=== PATIENT | female | born 1930 | race Two or more races ===

== ENCOUNTER 2016-03-06 23:49 | Inpatient (IN) | payer MEDICARE, MEDICAID ==
[~2016-03-06] VITALS: Ht 154.9 cm; Wt 79.4 kg
[2016-03-06] MEDS ORDERED: IV NS 0.9% 1,000 ML ONE (23:50)
[2016-03-06] MEDS ORDERED: ONDANSETRON HCL/PF 4 MG/2 ML VIAL ONE (23:50)
[2016-03-06] MEDS ORDERED: IV SET PRIMARY 1 EA INFUS.SET MC ONE (23:50)
[2016-03-07] VITALS (7 sets, daily range): BP systolic 124–151; BP diastolic 66–90
[2016-03-07] MEDS ORDERED: IV NS 0.9% 1,000 ML BAG IV ONE
[2016-03-07] MEDS ORDERED: ONDANSETRON HCL/PF 4 MG/2 ML VIAL IVP ONE
[2016-03-07 00:19] LABS: BASOPHILS % (AUTO) 0.5 % (0.0-2.0); DIFF TOTAL % 100 %; EOSINOPHILS # (AUTO) 0.3 /CMM (0.0-0.7); EOSINOPHILS % (AUTO) 3.8 % (0.0-6.0); HEMATOCRIT 31 % (33-45); LYMPHOCYTES # (AUTO) 2.2 /CMM (0.8-4.8); LYMPHOCYTES % (AUTO) 26.5 % (20.0-44.0); MEAN CORPUSCULAR HEMOGLOBIN 26 PG (26.0-33.0); MEAN CORPUSCULAR HGB CONC 32 g/dl (31.0-36.0); MEAN CORPUSCULAR VOLUME 81 fL (82-100); MONOCYTES # (AUTO) 0.5 /CMM (0.1-1.30); MONOCYTES % (AUTO) 5.4 % (2.0-12.0); NEUTROPHILS # (AUTO) 5.4 /CMM (1.8-8.9); NEUTROPHILS % (AUTO) 63.8 % (43.0-81.0); PLATELET COUNT (AUTO) 267 /CMM (150-450); RED BLOOD CELL COUNT(AUTO) 3.84 MIL/uL (4.0-5.2); WHITE BLOOD COUNT (AUTO) 8.5 K/uL (4.3-11.0)
[2016-03-07 00:31] LABS: ANION GAP 15 (5-14); CALCIUM, SERUM 8.5 mg/dL (8.5-10.1); CARBON DIOXIDE 27 mmol/L (21-32); CHLORIDE 106 mmol/L (98-107); CREATININE 1.1 mg/dL (0.6-1.3); GLUCOSE 188 mg/dL (74-106); SODIUM SERUM 144 mmol/L (136-145); UREA NITROGEN, BLOOD 14 mg/dL (7-18)
[2016-03-07 00:34] LABS: TROPONIN I < 0.017 ng/mL (0.00-0.056)
[2016-03-07 00:36] LABS: ALANINE AMINOTRANSFERASE 17 U/L (12-78); ALBUMIN 3.5 g/dL (3.4-5.0); ASPARTATE AMINOTRANSFERASE 12 U/L (15-37); BILIRUBIN,DIRECT 0.1 mg/dL (0.0-0.2); BILIRUBIN,TOTAL 0.2 mg/dL (0.2-1.0); INDIRECT BILIRUBIN 0.1 mg/dL (0.0-1.1); TOTAL PROTEIN, SERUM 7.2 g/dL (6.4-8.2)
[2016-03-07 01:10] LABS: KETONES,URINE NEGATIVE (NEGATIVE); LEUKOCYTE ESTERASE ,URINE NEGATIVE (NEGATIVE); PH,URINE 6.5 (5.0-8.0)
[2016-03-07 01:34] LABS: ADD UA MICROSCOPIC YES
[2016-03-07 01:36] LABS: ADD URINE CULTURE YES; RBC,URINE 0-2 /HPF (0-2); WBC,URINE 0-2 /HPF (0-3)
[2016-03-07] MEDS ORDERED: IV NS 0.9% 1,000 ML IV PRN (03:33)
[2016-03-07] MEDS ORDERED: MAGNESIUM HYDROXIDE 30 ML UDC PO PRN (04:00)
[2016-03-07] MEDS ORDERED: ACETAMINOPHEN 325 MG TABLET PO PRN (04:00)
[2016-03-07] MEDS ORDERED: MAG HYDROX/AL HYDROX/SIMETH 30 ML UDC PO PRN (04:00)
[2016-03-07] MEDS ORDERED: Z GUARD REMEDY 2 OZ OINT TP PRN (04:00)
[2016-03-07] MEDS ORDERED: ONDANSETRON HCL/PF 4 MG/2 ML VIAL IVP PRN (04:00)
[2016-03-07] MEDS ORDERED: HYDROCODONE/APAP 5/325MG 1 EACH TABLET PO PRN (04:00)
[2016-03-07] MEDS ORDERED: IV NS 0.9% 1,000 ML ONE (04:36)
[2016-03-07] MEDS ORDERED: IV SET PRIMARY PUMP SET 1 EA INFUS.SET MC ONE (04:37)
[2016-03-07] MEDS ORDERED: PANTOPRAZOLE 40 MG TABLET.DR PO SCH ×2 (08:03→10:00)
[2016-03-07] MEDS ORDERED: FURO20TA4 PO (09:59)
[2016-03-07] MEDS ORDERED: ESOM40CA52 PO (09:59)
[2016-03-07] MEDS ORDERED: LEVE750T10 PO (09:59)
[2016-03-07] MEDS ORDERED: ATOR20TA PO (09:59)
[2016-03-07] MEDS ORDERED: VALS1TAB52 PO (09:59)
[2016-03-07] MEDS ORDERED: GLIP1TAB6 PO (09:59)
[2016-03-07] MEDS ORDERED: ASPI81TA2 PO (09:59)
[2016-03-07] MEDS ORDERED: ENOXAPARIN SODIUM 30 MG/0.3 ML DISP.SYRIN SQ SCH (10:00)
[2016-03-07] MEDS ORDERED: ENOXAPARIN SODIUM 40 MG/0.4 ML DISP.SYRIN SQ SCH (10:00)
[2016-03-07 10:11] LABS: BASOPHILS % (AUTO) 0.6 % (0.0-2.0); DIFF TOTAL % 100 %; EOSINOPHILS # (AUTO) 0.2 /CMM (0.0-0.7); EOSINOPHILS % (AUTO) 1.8 % (0.0-6.0); HEMATOCRIT 28 % (33-45); HEMOGLOBIN 9.2 g/dL (11.5-14.8); LYMPHOCYTES # (AUTO) 1.8 /CMM (0.8-4.8); LYMPHOCYTES % (AUTO) 21.4 % (20.0-44.0); MEAN CORPUSCULAR HEMOGLOBIN 27 PG (26.0-33.0); MEAN CORPUSCULAR HGB CONC 33 g/dl (31.0-36.0); MEAN CORPUSCULAR VOLUME 81 fL (82-100); MONOCYTES # (AUTO) 0.6 /CMM (0.1-1.30); MONOCYTES % (AUTO) 7.6 % (2.0-12.0); NEUTROPHILS # (AUTO) 5.8 /CMM (1.8-8.9); NEUTROPHILS % (AUTO) 68.6 % (43.0-81.0); PLATELET COUNT (AUTO) 240 /CMM (150-450); RED BLOOD CELL COUNT(AUTO) 3.47 MIL/uL (4.0-5.2); WHITE BLOOD COUNT (AUTO) 8.4 K/uL (4.3-11.0)
[2016-03-07 10:33] LABS: ALBUMIN 3.2 g/dL (3.4-5.0); BILIRUBIN,TOTAL 0.4 mg/dL (0.2-1.0); CALCIUM, SERUM 8.2 mg/dL (8.5-10.1); PHOSPHORUS 2.8 mg/dL (2.5-4.9); POTASSIUM 3.8 mmol/L (3.5-5.1); TOTAL PROTEIN, SERUM 6.6 g/dL (6.4-8.2); TROPONIN I 0.025 ng/mL (0.00-0.056)
[2016-03-07 10:43] LABS: THYROID STIMULATING HORMONE 0.968 uIU/mL (0.358-3.74)
[2016-03-07] MEDS ORDERED: SECONDARY IV SET 1 EA INFUS.SET MC ONE (12:46)
[2016-03-07] MEDS: Magnesium 1GM/D5W 100ML PREMIX 100 ML IV SCH ×2 (12:49→13:47)
== END 2016-03-07 17:30 | disposition home or self-care (01) | DRG 57 ==
LOC: ER 23:56 → TELE 03-07 03:11
PROVIDERS: ADMIT Internal Medicine; ATTEND Internal Medicine
DX: I69.351 Hemiplegia and hemiparesis following cerebral infarction affecting right dominant side (principal); R53.1 Weakness; I10 Essential (primary) hypertension; D64.9 Anemia, unspecified; R05 Cough; R73.9 Hyperglycemia, unspecified; R09.89 Other specified symptoms and signs involving the circulatory and respiratory systems; Z68.33 Body mass index [BMI] 33.0-33.9, adult; E66.9 Obesity, unspecified
CPT/HCPCS: 36415; 70450-TC; 71010-TC; 80048-TC; 80053-TC; 80061-TC; 80076-TC; 81000-TC; 82306; 82542; 82728-TC; 82962-TC; 83540-TC; 83735-TC; 84100-TC; 84439-TC; 84443-TC; 84484-TC; 85025-TC; 87081-TC; 87086-TC; 93307-TC; 93880-TC; A4606; J1650; J2405; J3475; J7030; Z7610